=== PATIENT | male | born 1950 | race Caucasian/White ===

== ENCOUNTER → 2025-02-26 07:56 | Outpatient (REF) | payer OTHER, SELFPAY | LOC: RAD 07:56 | PROVIDERS: ATTENDING PHYSICIAN Internal Medicine | DX: R11.0 Nausea (principal); R63.4 Abnormal weight loss; K70.10 Alcoholic hepatitis without ascites | CPT/HCPCS: 76700 ==

== ENCOUNTER → 2025-08-03 09:17 | Outpatient (REF) | payer OTHER, SELFPAY | LOC: RAD 09:17 | PROVIDERS: ATTENDING PHYSICIAN Internal Medicine | DX: M25.552 Pain in left hip (principal) | CPT/HCPCS: 73502 ==